=== PATIENT | male | born 1995 | race Caucasian/White ===

== ENCOUNTER 2020-11-20 03:39 | Emergency (ER) | payer SELFPAY ==
[~2020-11-20] VITALS: Ht 175.3 cm; Wt 54.4 kg
[2020-11-20 03:48] VITALS: BP 116/79
[2020-11-20] MEDS ORDERED: KETOROLAC TROMETHAMINE INJ 60 MG/2 ML VIAL IM ONE ×2 (04:00→04:14)
[2020-11-20] MEDS ORDERED: KETOROLAC TROMETHAMINE 15 MG/ML VIAL ONE (04:04)
[2020-11-20] MEDS ORDERED: KETO10TA2 PO (04:41)
--- NOTE | 2020-11-20 04:54 | NUR ---
Patient discharged to home in stable condition. Written and verbal after care instructions given. Patient verbalizes understanding of instruction.
== END 2020-11-20 04:56 | disposition home or self-care (01) ==
LOC: ER 03:45
DX: S00.81XA Abrasion of other part of head, initial encounter (principal); V49.59XA Passenger injured in collision with other motor vehicles in traffic accident, initial encounter; Y93.89 Activity, other specified; Y92.413 State road as the place of occurrence of the external cause; Y99.8 Other external cause status
CPT/HCPCS: 70486; 96372; 99284; J1885 ×2

== ENCOUNTER 2023-06-07 10:56 | Emergency (ER) | payer OTHER ==
[~2023-06-07] VITALS: Ht 172.7 cm; Wt 74.8 kg
[~2023-06-07 10:56] MED LIST: KETO10TA2 PO
[2023-06-07] MEDS ORDERED: LORAZEPAM 1 MG TABLET ONE (11:30)
[2023-06-07] MEDS: LORAZEPAM 1 MG TABLET PO ONE (11:31)
[2023-06-07 13:26] VITALS: BP 130/88; TEMP 98.2; O2SAT 97
== END 2023-06-07 13:27 | disposition home or self-care (01) ==
LOC: ER 10:56
DX: R07.9 Chest pain, unspecified (principal); J45.909 Unspecified asthma, uncomplicated; F41.9 Anxiety disorder, unspecified
CPT/HCPCS: 71045-TC